=== PATIENT | male | born 1980 | race Caucasian/White ===

== ENCOUNTER 2019-08-22 08:19 | Emergency (ER) | payer OTHER ==
[~2019-08-22] VITALS: Ht 165.1 cm; Wt 89.8 kg
[2019-08-22 08:31] VITALS: BP 111/67
--- NOTE | 2019-08-22 08:39 | NUR ---
PT AMB TO BED 9 WITH STEADY GAIT
--- NOTE | 2019-08-22 08:51 | NUR ---
PATIENT PRESENTS TO ED WITH BILATERAL LEG SWELLING X 1 WEEK, R > L. PT COMPLAINS OF 8/10 SHARP PAIN ON BOTH LE. WITH NUMBNESS OF RIGHT FOOT. CR <4 SECS. SKIN IS COOL TO TOUCH. NO HISTORY OF TRAUMA OR INJURY. PT KNOWN CASE OF LIVER CIRRHOSIS. PT ABLE TO AMBULATE WITH ASSISTANCE. LUNGS CLEAR BL; HR EVEN AND REGULAR; VSS; PATIENT POSITIONED FOR COMFORT; HOB ELEVATED; BEDRAILS UP X2; BED DOWN. ER MD MADE AWARE OF PT STATUS. MIGUEL
--- NOTE | 2019-08-22 09:41 | NUR ---
XRAY AT BEDSIDE
[2019-08-22 10:36] LABS: BASOPHILS % (AUTO) 0.4 % (0.0-2.0); EOSINOPHILS # (AUTO) 0.2 K/uL (0-0.4); EOSINOPHILS % (AUTO) 2.3 % (0.0-4.0); HEMATOCRIT 27.7 % (36-52); HEMOGLOBIN 8.3 g/dL (12.0-18.0); LYMPHOCYTES # (AUTO) 1.2 K/uL (2.0-11.5); LYMPHOCYTES % (AUTO) 17.3 % (20.5-51.1); MEAN CORPUSCULAR HEMOGLOBIN 22 pg (27-31); MEAN CORPUSCULAR HGB CONC 30 g/dL (33-37); MEAN CORPUSCULAR VOLUME 74.5 fL (80-94); MONOCYTES # (AUTO) 0.7 K/uL (0.8-1.0); MONOCYTES % (AUTO) 9.4 % (1.7-9.3); NEUTROPHILS # (AUTO) 4.9 K/uL (1.8-7.7); NEUTROPHILS % (AUTO) 70.6 % (42.2-75.2); PLATELET COUNT (AUTO) 180 K/uL (140-450); RED BLOOD CELL COUNT(AUTO) 3.72 MIL/uL (4.20-6.10); RED CELL DISTRIBUTION WIDTH 18.6 % (11.6-13.7); WHITE BLOOD COUNT (AUTO) 6.9 K/uL (4.8-10.8)
[2019-08-22 10:57] LABS: PROTHROMBIN TIME 10.9 secs (10.8-13.4)
[2019-08-22 10:58] LABS: ALBUMIN 3.8 g/dL (3.4-5.0); ANION GAP 14.3 (8-16); CARBON DIOXIDE 29.8 mmol/L (21-32); CREATININE 1.2 mg/dL (0.7-1.3); POTASSIUM 4.1 mmol/L (3.5-5.1); TOTAL BILIRUBIN 0.5 mg/dL (0.0-1.0)
[2019-08-22 11:30] LABS: APPEARANCE,URINE CLEAR (CLEAR); BILIRUBIN,URINE NEGATIVE (NEGATIVE); BLOOD, URINE NEGATIVE (NEGATIVE); COLOR,URINE YELLOW (YELLOW); LEUKOCYTE ESTERASE ,URINE NEGATIVE (NEGATIVE); NITRITE, URINE NEGATIVE (NEGATIVE); UGLUCOSE NEGATIVE (NEGATIVE)
[2019-08-22 12:36] VITALS: BP 107/69
== END 2019-08-22 12:37 | disposition home or self-care (01) ==
LOC: MED 08:19
DX: B19.10 Unspecified viral hepatitis B without hepatic coma (principal); E11.9 Type 2 diabetes mellitus without complications; E03.9 Hypothyroidism, unspecified
CPT/HCPCS: 36415; 71045; 76700; 80053; 81003; 82140; 82948; 83605; 83880; 84484; 85025; 85610; 85730; 87040; 87086; 93005; 99284; Q0092

== ENCOUNTER 2020-05-02 13:25 | Emergency (ER) | payer OTHER ==
[~2020-05-02] VITALS: Ht 165.1 cm; Wt 75.7 kg
[2020-05-02 13:35] VITALS: BP 104/76
--- NOTE | 2020-05-02 13:43 | NUR ---
PATIENT PRESENTS TO ED WITH DIZZINESS/ NAUSEA/ GEN WEAKNESS X4 DAYS . PT STATES HE FEELS LIKE HE WANTS TO PASS OUT AT TIMES, BUT DENIES ANY EPISODES OF SYNCOPE . ; SKIN IS PINK/WARM/DRY; AAOX4 WITH EVEN AND STEADY GAIT; LUNGS CLEAR BL; HR EVEN AND REGULAR; PT DENIES ANY FEVER, CP, SOB, OR COUGH AT THIS TIME; PATIENT STATES PAIN OF 3/10 AT THIS TIME; VSS; PATIENT POSITIONED FOR COMFORT; HOB ELEVATED; BEDRAILS UP X2; BED DOWN. ER MD MADE AWARE OF PT STATUS.
--- NOTE | 2020-05-02 13:53 | NUR ---
Dr. Hernandez is evaluating the patient at bedside.
[2020-05-02] MEDS ORDERED: KETOROLAC 30 MG/ML VIAL IVP ONE (13:55)
[2020-05-02] MEDS ORDERED: NACL 0.9% 1,000 ML IV ONE (13:55)
--- NOTE | 2020-05-02 14:50 | NUR ---
COLLECTED UA AND SENT TO LAB.
[2020-05-02 14:52] LABS: BASOPHILS # (AUTO) 0.1 K/uL (0.00-0.22); BASOPHILS % (AUTO) 0.7 % (0.0-2.0); EOSINOPHILS # (AUTO) 0.2 K/uL (0-0.4); EOSINOPHILS % (AUTO) 1.8 % (0.0-4.0); HEMATOCRIT 44.7 % (36-52); HEMOGLOBIN 15.1 g/dL (12.0-18.0); LYMPHOCYTES % (AUTO) 14.8 % (20.5-51.1); MEAN CORPUSCULAR HEMOGLOBIN 28 pg (27-31); MEAN CORPUSCULAR HGB CONC 34 g/dL (33-37); MEAN CORPUSCULAR VOLUME 81.9 fL (80-94); MONOCYTES # (AUTO) 0.7 K/uL (0.8-1.0); MONOCYTES % (AUTO) 5.3 % (1.7-9.3); NEUTROPHILS # (AUTO) 10.5 K/uL (1.8-7.7); NEUTROPHILS % (AUTO) 77.4 % (42.2-75.2); PLATELET COUNT (AUTO) 117 K/uL (140-450); RED BLOOD CELL COUNT(AUTO) 5.45 MIL/uL (4.20-6.10); WHITE BLOOD COUNT (AUTO) 13.5 K/uL (4.8-10.8)
[2020-05-02 15:14] LABS: BARBITURATE, URINE NEGATIVE ng/ml (NEG <=200); BENZODIAZEPINE, URINE NEGATIVE ng/mL (NEG <=200); CANNABINOID, URINE NEGATIVE ng/mL (NEG <=50); COCAINE, URINE NEGATIVE ng/mL (NEG <=300); OPIATE, URINE NEGATIVE ng/mL (NEG <=2000); PHENCYCLIDINE SCREEN,URINE NEGATIVE ng/mL (NEG <=25)
[2020-05-02 15:14] LABS: ALBUMIN 4.3 g/dL (3.4-5.0); ANION GAP 17.6 (8-16); CREATININE 1.8 mg/dL (0.6-1.3); POTASSIUM 4.6 mmol/L (3.5-5.1)
[2020-05-02] MEDS ORDERED: MECLIZINE 25 MG TAB PO ONE (16:20)
[2020-05-02 17:31] VITALS: BP 110/82
== END 2020-05-02 17:31 | disposition home or self-care (01) ==
LOC: MED 13:25
DX: R19.7 Diarrhea, unspecified (principal); R53.1 Weakness; R42 Dizziness and giddiness; I10 Essential (primary) hypertension; E11.9 Type 2 diabetes mellitus without complications; E07.9 Disorder of thyroid, unspecified
CPT/HCPCS: 36415; 70450; 71045; 80053; 80305; 83690; 84484; 85025; 93005; 96361; 96374; 99285; J1885; J7030; J8597

== ENCOUNTER 2021-11-22 12:27 | Emergency (ER) | payer OTHER ==
[~2021-11-22] VITALS: Ht 165.1 cm; Wt 73.0 kg
[2021-11-22 12:45] VITALS: BP 132/92
[2021-11-22 13:28] LABS: BASOPHILS # (AUTO) 0.1 K/uL (0.00-0.22); BASOPHILS % (AUTO) 0.6 % (0.0-2.0); EOSINOPHILS # (AUTO) 0.3 K/uL (0-0.4); EOSINOPHILS % (AUTO) 3.5 % (0.0-4.0); HEMATOCRIT 39.1 % (36-52); HEMOGLOBIN 13.1 g/dL (12.0-18.0); LYMPHOCYTES # (AUTO) 2.2 K/uL (2.0-11.5); LYMPHOCYTES % (AUTO) 25.2 % (20.5-51.1); MEAN CORPUSCULAR HEMOGLOBIN 28 pg (27-31); MEAN CORPUSCULAR HGB CONC 34 g/dL (33-37); MEAN CORPUSCULAR VOLUME 84.5 fL (80-94); MONOCYTES # (AUTO) 0.5 K/uL (0.8-1.0); MONOCYTES % (AUTO) 5.9 % (1.7-9.3); NEUTROPHILS # (AUTO) 5.7 K/uL (1.8-7.7); NEUTROPHILS % (AUTO) 64.8 % (42.2-75.2); PLATELET COUNT (AUTO) 94 K/uL (140-450); RED BLOOD CELL COUNT(AUTO) 4.62 MIL/uL (4.20-6.10); RED CELL DISTRIBUTION WIDTH 13.9 % (11.6-13.7); WHITE BLOOD COUNT (AUTO) 8.8 K/uL (4.8-10.8)
[2021-11-22 14:06] LABS: PROTHROMBIN TIME 11.4 secs (10.8-13.4)
--- NOTE | 2021-11-22 15:10 | NUR ---
AMBULATED TO BED 6
--- NOTE | 2021-11-22 15:15 | NUR ---
41/M PRESENTS TO ED WITH C/O DARK STOOLS AND INTERMITTENT EPISODES OF 6/10 MID ABDOMINAL PAIN X3 DAYS. PATIENT DENIES USE OF RECENT NEW MEDICATIONS, STATES HE HAD SIMILAR SYMPTOMS IN THE PAST. PATIENT DENIES N/V/D OR URINARY SYMPTOMS.
[2021-11-22 15:28] LABS: ALBUMIN 4.2 g/dL (3.4-5.0); ANION GAP 14.1 (8-16); CARBON DIOXIDE 25.9 mmol/L (21-32); TOTAL BILIRUBIN 0.7 mg/dL (0.0-1.0)
[2021-11-22 15:31] LABS: CREATININE 1.4 mg/dL (0.6-1.3)
[2021-11-22 16:09] LABS: APPEARANCE,URINE CLEAR (CLEAR); BILIRUBIN,URINE NEGATIVE (NEGATIVE); BLOOD, URINE NEGATIVE (NEGATIVE); COLOR,URINE YELLOW (YELLOW); LEUKOCYTE ESTERASE ,URINE NEGATIVE (NEGATIVE); NITRITE, URINE NEGATIVE (NEGATIVE); UGLUCOSE 3+ (NEGATIVE)
[2021-11-22] MEDS ORDERED: PANTOPRAZOLE 40 MG INJ VIAL IVP ONE (16:10)
[2021-11-22] MEDS ORDERED: NACL 0.9% 500 ML IV ONE (16:10)
--- NOTE | 2021-11-22 17:42 | NUR ---
IV removed, catheter intact and site benign. Applied folded 4x4 gauze and tape to stop bleeding.
--- NOTE | 2021-11-22 17:43 | NUR ---
Patient discharged with v/s stable. Written and verbal after care instructions ABOUT GASTROINTESTINAL BLEEDING given and explained. Patient verbalized understanding. Ambulatory with steady gait. All questions addressed prior to discharge. Advised to follow up with PMD.
[2021-11-22 17:45] VITALS: BP 125/87
--- NOTE | 2021-11-22 17:45 | NUR ---
The patient's care was reviewed and supervised by Barb Tanner RN.
== END 2021-11-22 17:45 | disposition home or self-care (01) ==
LOC: MED 12:27
DX: K92.2 Gastrointestinal hemorrhage, unspecified (principal); E11.9 Type 2 diabetes mellitus without complications; E03.9 Hypothyroidism, unspecified; Z86.19 Personal history of other infectious and parasitic diseases; I10 Essential (primary) hypertension
CPT/HCPCS: 36415; 71045; 80053; 81003; 83690; 84484; 85025; 85610; 85730; 86886; 86900; 86901; 93005; 96361; 96374; 99285; C9113; J7030